=== PATIENT | female | born 1965 | race Two or more races ===

== ENCOUNTER 2024-02-18 11:37 | Inpatient (IN) | payer OTHER ==
[~2024-02-18] VITALS: Ht 152.4 cm; Wt 89.6 kg
[2024-02-18 12:00] VITALS: PULSE 105; RESP 23; O2SAT 93
[2024-02-18] MEDS ORDERED: ASPI-1444 PO (12:25)
[2024-02-18] MEDS ORDERED: NYST15PO4 TP (12:25)
[2024-02-18] MEDS ORDERED: CLOT15CR23 TP (12:25)
[2024-02-18] MEDS ORDERED: LEVE500T20 PO (12:25)
[2024-02-18] MEDS ORDERED: SIMV-46 PO (12:25)
[2024-02-18 12:28] LABS: BASOPHILS % (AUTO) 0.5 % (0.0-2.0); EOSINOPHILS % (AUTO) 0.7 % (1.0-6.0); HEMATOCRIT 46.8 % (36-46); HEMOGLOBIN 15.5 g/dL (12.0-16.0); LYMPHOCYTES % (AUTO) 10.4 % (22.0-44.0); MEAN CORPUSCULAR HEMOGLOBIN 32.4 pg (26.0-34.0); MEAN CORPUSCULAR HGB CONC 33.1 G/dL (31.0-37.0); MEAN CORPUSCULAR VOLUME 98 fL (80-100); MONOCYTES # (AUTO) 0.6 K/uL (0.1-1.0); MONOCYTES % (AUTO) 6.5 % (2.0-9.0); NEUTROPHILS % (AUTO) 81.9 % (40.0-70.0); PLATELET COUNT (AUTO) 208 K/uL (150-450); RED BLOOD CELL COUNT(AUTO) 4.78 MIL/uL (4.00-5.20); RED CELL DISTRIBUTION WIDTH 14.9 % (11.5-14.5); WHITE BLOOD COUNT (AUTO) 9.8 K/uL (4.5-11.0)
[2024-02-18 12:30] VITALS: PULSE 106; RESP 23; O2SAT 93
[2024-02-18 12:36] LABS: ABG BASE EXCESS 1.2 mmol/L (-2.0-3.0); ABG CARBOXYHEMOGLOBIN 0.9 % (0.0-1.5); ABG HCO3 25.4 mmol/L (22.0-26.0); ABG METHEMOGLOBIN 0.6 % (0.0-1.5); ABG OXYGEN CONTENT 21.2 mL/dL (15.0-23.0); ABG OXYGEN SATURATION 99.4 % (95.0-98.0); ABG OXYHEMOGLOBIN 97.9 % (94.0-100.0); ABG PCO2 42 mmHg (35-45); ABG PH 7.411 (7.35-7.450); ABG TOTAL HEMOGLOBIN 15.2 G/dL (12.0-18.0); ALLEN TEST, BLOOD GAS POS; O2 DEVICE,BLOOD GAS NC (ROOM AIR); PO2, ARTERIAL BG 161.2 mmHg (84.0-92.0); SITE, BLOOD GAS RT BRACHIAL; SOURCE, BLOOD GAS ARTERIAL; TEMPERATURE, FAHRENHEIT, BG 98.6 FAHREN (96.0-98.6)
[2024-02-18] MEDS: SODIUM CHLORIDE 0.9% 2,600 ML IV ONE (12:42)
[2024-02-18] MEDS: ALBUTEROL SULFATE 2.5 MG/0.5 ML 5 ML NEB SOLUTION NEB ONE (12:51)
[2024-02-18] MEDS: IPRATROPIUM BROMIDE 0.5 MG/2.5 ML NEB SOLUTION NEB ONE (12:51)
[2024-02-18 13:19] LABS: B-TYPE NATRIURETIC PEPTIDE 14 pg/mL (0-100)
[2024-02-18] MEDS ORDERED: BISACODYL 10 MG RECTAL RECTAL SUPPOSITORY PR PRN (13:30)
[2024-02-18] MEDS ORDERED: ONDANSETRON HCL 4 MG/2 ML VIAL IVP PRN (13:30)
[2024-02-18] MEDS ORDERED: LORazepam 2 MG/ML VIAL IVP PRN (13:30)
[2024-02-18] MEDS ORDERED: ACETAMINOPHEN 325 MG TABLET PO PRN (13:30)
[2024-02-18 13:31] LABS: TROPONIN I-HIGH SENSITIVITY 5 ng/L (<51)
[2024-02-18 13:36] LABS: ANION GAP 8 mmol/L (8-16); CALCIUM, TOTAL 8.3 mg/dL (8.8-10.5); CARBON DIOXIDE 29 mmol/L (22-29); CHLORIDE 101 mmol/L (98-107); GLOMERULAR FILTR. RATE CALC > 60 mL/min (>60); GLUCOSE,RANDOM 114 mg/dL (70-110); POTASSIUM 3.8 mmol/L (3.5-5.1); SODIUM SERUM 138 mmol/L (136-145); UREA NITROGEN, BLOOD 15 mg/dL (7-18)
[2024-02-18 14:01] LABS: ALANINE AMINOTRANSFERASE 20 U/L (12-78); ALBUMIN 2.4 g/dL (3.4-5.0); ALKALINE PHOSPHATASE 93 U/L (46-116); ASPARTATE AMINOTRANSFERASE 18 U/L (15-37); BILIRUBIN,TOTAL 0.7 mg/dL (0.1-1.0); CREATINE KINASE, TOTAL ONLY 98 U/L (26-192); TOTAL PROTEIN, SERUM 8.9 g/dL (6.4-8.2)
[2024-02-18 14:08] LABS: LACTIC ACID 1.2 mmol/L (0.4-2.0)
[2024-02-18] MEDS: AZITHROMYCIN 500 MG/NS 250 ML IV ONE (14:12)
[2024-02-18] MEDS: CefTRIAXone 1 GM/DEXTROSE 50 ML IV ONE (14:12)
[2024-02-18 14:30] VITALS: PULSE 118; RESP 36; O2SAT 96
[2024-02-18] MEDS: SODIUM CHLORIDE 0.9% 1,000 ML IV ONE (15:19)
[2024-02-18] MEDS: HEPARIN SODIUM,PORCINE 5,000 UNITS/ML VIAL SQ SCH (15:27)
[2024-02-18 15:55] LABS: APPEARANCE,URINE CLEAR (CLEAR); BILIRUBIN,URINE NEGATIVE (NEGATIVE); COLOR,URINE LIGHT YELLOW (YELLOW); GLUCOSE, URINE (UA) NEGATIVE (NEGATIVE); KETONES,URINE NEGATIVE (NEGATIVE); LEUKOCYTE ESTERASE ,URINE NEGATIVE (NEGATIVE); NITRATE,URINE NEGATIVE (NEGATIVE); OCCULT BLOOD,URINE NEGATIVE (NEGATIVE); PH,URINE 5.5 (5.0-8.0); PROTEIN,URINE NEGATIVE (NEGATIVE); SPECIFIC GRAVITIY, URINE 1.009 (1.003-1.030); UROBILINOGEN,URINE <=1.0 mg/dL (<=1.0)
[2024-02-18 16:50] VITALS: PULSE 108; RESP 37; O2SAT 94
[2024-02-18 16:53] LABS: INFLUENZA A-RTPCR,COMBO NEGATIVE (NEGATIVE); INFLUENZA B-RTPCR,COMBO NEGATIVE (NEGATIVE); RESPIRATORY SYNCYTIAL VRS-PCR NEGATIVE (NEGATIVE); SARS COVID19 RTPCR, COMBO NEGATIVE (NEGATIVE)
[2024-02-18] MEDS: ACETAMINOPHEN 650 MG RECTAL SUPPOSITORY PR PRN (17:44)
[2024-02-18] MEDS ORDERED: NOREPINEPHRINE 8 MG/0.9 % NACL 250 ML IV ONE (18:43)
[2024-02-18] MEDS: NOREPINEPHRINE 8 MG/0.9 % NACL 250 ML IV PRN (18:48)
[2024-02-18 19:02] VITALS: PULSE 108; RESP 20; O2SAT 96
[2024-02-18] MEDS: CHLORHEXIDINE GLUCONATE 2% TOWELETTE [2'S/6'S] TP SCH (21:59)
[2024-02-18 22:11] VITALS: PULSE 90; RESP 16; O2SAT 100
[2024-02-19] VITALS (12 sets, daily range): BP systolic 113–145; BP diastolic 60–73; PULSE 59–116; RESP 15–26; TEMP 98.6–99.4; O2SAT 91–100
[2024-02-19] MEDS: LevETIRAcetam 500 MG in DEXTROSE 5%-WATER 100 ML IV SCH (06:11)
[2024-02-19] MEDS: PANTOPRAZOLE SODIUM 40 MG/VIAL IVP SCH (09:09)
[2024-02-19 14:50] LABS: ABG CARBOXYHEMOGLOBIN 0.5 % (0.0-1.5); ABG HCO3 23.6 mmol/L (22.0-26.0); ABG METHEMOGLOBIN 0.2 % (0.0-1.5); ABG OXYGEN SATURATION 99.3 % (95.0-98.0); ABG OXYHEMOGLOBIN 98.6 % (94.0-100.0); ABG PCO2 44 mmHg (35-45); ABG PH 7.361 (7.35-7.450); ABG TOTAL HEMOGLOBIN 14.1 G/dL (12.0-18.0); PO2, ARTERIAL BG 218.3 mmHg (84.0-92.0); SOURCE, BLOOD GAS ARTERIAL; TEMPERATURE, FAHRENHEIT, BG 99.1 FAHREN (96.0-98.6)
[2024-02-19 15:03] LABS: ABG A-A DIFF O2 218.3 mmHg (10-20.0); ALLEN TEST, BLOOD GAS Positive; SITE, BLOOD GAS LFT BRACHIAL
[2024-02-19 15:04] LABS: O2 DEVICE,BLOOD GAS CANNULA (ROOM AIR)
[2024-02-19] MEDS ORDERED: SODIUM CHLORIDE 0.9% 250 ML IV ONE (15:09)
[2024-02-19] MEDS: CefTRIAXone 1 GM/DEXTROSE 50 ML IV SCH (15:13)
[2024-02-19] MEDS: AZITHROMYCIN 500 MG/NS 250 ML IV SCH (15:13)
[2024-02-19] MEDS: RINGERS SOLUTION,LACTATED 1,000 ML IV SCH (15:14)
[2024-02-19] MEDS: MethylPREDNISolone SOD SUCC 125 MG/2 ML VIAL IVP SCH (17:07)
[2024-02-19] MEDS: ALBUTEROL SULFATE 2.5 MG/0.5 ML NEB SOLUTION NEB SCH (19:53)
[2024-02-19] MEDS: IPRATROPIUM BROMIDE 0.5 MG/2.5 ML NEB SOLUTION NEB SCH (19:53)
[2024-02-20] VITALS (18 sets, daily range): BP systolic 112–152; BP diastolic 53–87; PULSE 52–109; RESP 14–20; TEMP 97.1–98.9; O2SAT 52–99
[2024-02-20] MEDS ORDERED: SODIUM CHLORIDE 0.9% 250 ML IV ONE (01:08)
[2024-02-20 06:17] LABS: BASOPHILS % (AUTO) 0.1 % (0.0-2.0); EOSINOPHILS % (AUTO) 0 % (1.0-6.0); HEMATOCRIT 37.3 % (36-46); HEMOGLOBIN 12.3 g/dL (12.0-16.0); LYMPHOCYTES # (AUTO) 0.6 K/uL (1.0-4.8); LYMPHOCYTES % (AUTO) 8.6 % (22.0-44.0); MEAN CORPUSCULAR HEMOGLOBIN 32.2 pg (26.0-34.0); MEAN CORPUSCULAR HGB CONC 32.9 G/dL (31.0-37.0); MEAN CORPUSCULAR VOLUME 98 fL (80-100); MONOCYTES % (AUTO) 0.7 % (2.0-9.0); NEUTROPHILS # (AUTO) 6.2 K/uL (1.8-7.7); PLATELET COUNT (AUTO) 167 K/uL (150-450); RED BLOOD CELL COUNT(AUTO) 3.81 MIL/uL (4.00-5.20); RED CELL DISTRIBUTION WIDTH 14.8 % (11.5-14.5); WHITE BLOOD COUNT (AUTO) 6.8 K/uL (4.5-11.0)
[2024-02-20 06:23] LABS: NEUTROPHILS % (AUTO) 90.6 % (40.0-70.0)
[2024-02-20 06:25] LABS: ANION GAP 7 mmol/L (8-16); CALCIUM, TOTAL 8.1 mg/dL (8.8-10.5); CARBON DIOXIDE 26 mmol/L (22-29); CHLORIDE 105 mmol/L (98-107); CREATININE 0.77 mg/dL (0.60-1.30); GLOMERULAR FILTR. RATE CALC > 60 mL/min (>60); GLUCOSE,RANDOM 153 mg/dL (70-110); POTASSIUM 3.9 mmol/L (3.5-5.1); SODIUM SERUM 138 mmol/L (136-145); UREA NITROGEN, BLOOD 9 mg/dL (7-18)
[2024-02-21] VITALS (18 sets, daily range): BP systolic 123–141; BP diastolic 72–98; PULSE 51–99; RESP 11–21; TEMP 97.1–98.3; O2SAT 93–100
[2024-02-21 10:15] LABS: BASOPHILS % (AUTO) 0.1 % (0.0-2.0); EOSINOPHILS % (AUTO) 0 % (1.0-6.0); HEMATOCRIT 38.3 % (36-46); HEMOGLOBIN 12.6 g/dL (12.0-16.0); LYMPHOCYTES # (AUTO) 0.6 K/uL (1.0-4.8); LYMPHOCYTES % (AUTO) 7.8 % (22.0-44.0); MEAN CORPUSCULAR HEMOGLOBIN 32.1 pg (26.0-34.0); MEAN CORPUSCULAR HGB CONC 32.9 G/dL (31.0-37.0); MEAN CORPUSCULAR VOLUME 97 fL (80-100); MONOCYTES # (AUTO) 0.2 K/uL (0.1-1.0); MONOCYTES % (AUTO) 3.3 % (2.0-9.0); NEUTROPHILS # (AUTO) 6.5 K/uL (1.8-7.7); PLATELET COUNT (AUTO) 189 K/uL (150-450); RED BLOOD CELL COUNT(AUTO) 3.94 MIL/uL (4.00-5.20); RED CELL DISTRIBUTION WIDTH 14.4 % (11.5-14.5); WHITE BLOOD COUNT (AUTO) 7.3 K/uL (4.5-11.0)
[2024-02-21 10:16] LABS: NEUTROPHILS % (AUTO) 88.8 % (40.0-70.0)
[2024-02-21 10:24] LABS: ANION GAP 6 mmol/L (8-16); CALCIUM, TOTAL 8.1 mg/dL (8.8-10.5); CARBON DIOXIDE 31 mmol/L (22-29); CHLORIDE 109 mmol/L (98-107); CREATININE 0.84 mg/dL (0.60-1.30); GLOMERULAR FILTR. RATE CALC > 60 mL/min (>60); GLUCOSE,RANDOM 127 mg/dL (70-110); POTASSIUM 3.7 mmol/L (3.5-5.1); SODIUM SERUM 146 mmol/L (136-145); UREA NITROGEN, BLOOD 11 mg/dL (7-18)
[2024-02-22] VITALS (18 sets, daily range): BP systolic 104–160; BP diastolic 61–95; PULSE 52–106; RESP 12–21; TEMP 96.5–98.7; O2SAT 92–100
[2024-02-22] MEDS ORDERED: SODIUM CHLORIDE 0.9% 250 ML IV ONE (17:52)
[2024-02-23] VITALS (19 sets, daily range): BP systolic 111–145; BP diastolic 67–99; PULSE 46–93; RESP 14–20; TEMP 96.6–98.4; O2SAT 92–100
[2024-02-23] MEDS: *CLINICAL-PERIPHERAL PARENTERAL NUTRITION DOSING CLINICAL ONE (08:44)
[2024-02-23 09:52] LABS: ANION GAP 6 mmol/L (8-16); CALCIUM, TOTAL 7.8 mg/dL (8.8-10.5); CARBON DIOXIDE 32 mmol/L (22-29); CHLORIDE 101 mmol/L (98-107); GLOMERULAR FILTR. RATE CALC > 60 mL/min (>60); GLUCOSE,RANDOM 125 mg/dL (70-110); PHOSPHORUS 3.1 mg/dL (2.5-4.9); POTASSIUM 3.4 mmol/L (3.5-5.1); SODIUM SERUM 139 mmol/L (136-145); UREA NITROGEN, BLOOD 13 mg/dL (7-18)
[2024-02-23] MEDS ORDERED: POTASSIUM CHLORIDE 20 MEQ ER TABLET PO PRN (10:45)
[2024-02-23] MEDS: POTASSIUM CHL 10 MEQ/WATER 50 ML IV PRN (11:54)
[2024-02-23] MEDS: MethylPREDNISolone SOD SUCC 40 MG/ML VIAL IVP SCH (15:25)
[2024-02-23] MEDS: SODIUM CHLORIDE IV SCH (22:15)
[2024-02-23] MEDS: PPN IV SCH (22:15)
[2024-02-23] MEDS: [UNRECOGNIZED DRUG - OTHER] IV SCH (22:15)
[2024-02-23] MEDS: POTASSIUM CHLORIDE IV SCH (22:15)
[2024-02-24] VITALS (19 sets, daily range): BP systolic 119–151; BP diastolic 71–89; PULSE 51–88; RESP 14–20; TEMP 97.1–98.1; O2SAT 95–100
[2024-02-24] MEDS ORDERED: 0.9% SODIUM CHLORIDE 5 ML NEB SOLUTION NEB ONE (02:51)
[2024-02-24 07:16] LABS: ANION GAP 5 mmol/L (8-16); CALCIUM, TOTAL 8.1 mg/dL (8.8-10.5); CARBON DIOXIDE 28 mmol/L (22-29); CHLORIDE 102 mmol/L (98-107); CREATININE 0.77 mg/dL (0.60-1.30); GLOMERULAR FILTR. RATE CALC > 60 mL/min (>60); GLUCOSE,RANDOM 133 mg/dL (70-110); PHOSPHORUS 3.6 mg/dL (2.5-4.9); POTASSIUM 4.2 mmol/L (3.5-5.1); SODIUM SERUM 135 mmol/L (136-145); UREA NITROGEN, BLOOD 17 mg/dL (7-18)
[2024-02-24] MEDS: PredniSONE 20 MG TABLET PO SCH (09:00)
[2024-02-25] VITALS (20 sets, daily range): BP systolic 95–164; BP diastolic 56–90; PULSE 60–101; RESP 15–21; TEMP 97.6–98.6; O2SAT 97–100
[2024-02-25 07:41] LABS: ANION GAP 3 mmol/L (8-16); CALCIUM, TOTAL 7.4 mg/dL (8.8-10.5); CARBON DIOXIDE 31 mmol/L (22-29); CHLORIDE 103 mmol/L (98-107); CREATININE 0.77 mg/dL (0.60-1.30); GLOMERULAR FILTR. RATE CALC > 60 mL/min (>60); GLUCOSE,RANDOM 93 mg/dL (70-110); PHOSPHORUS 2.5 mg/dL (2.5-4.9); POTASSIUM 3.3 mmol/L (3.5-5.1); SODIUM SERUM 136 mmol/L (136-145); UREA NITROGEN, BLOOD 24 mg/dL (7-18)
[2024-02-25] MEDS ORDERED: PROPOFOL 1% 20 ML VIAL IVP ONE (10:00)
[2024-02-25] MEDS ORDERED: LIDOCAINE/PF 2% 5 ML VIAL ONE (10:00)
[2024-02-25 12:00] LABS: HEMOGLOBIN 14.3 g/dL (12.0-16.0); MEAN CORPUSCULAR HEMOGLOBIN 32.1 pg (26.0-34.0); MEAN CORPUSCULAR HGB CONC 33.2 G/dL (31.0-37.0); MEAN CORPUSCULAR VOLUME 97 fL (80-100); PLATELET COUNT (AUTO) 183 K/uL (150-450); RED BLOOD CELL COUNT(AUTO) 4.45 MIL/uL (4.00-5.20); RED CELL DISTRIBUTION WIDTH 13.9 % (11.5-14.5); WHITE BLOOD COUNT (AUTO) 7.6 K/uL (4.5-11.0)
[2024-02-25 12:03] LABS: BAND NEUTROPHILS % (MANUAL) 0 % (0-5)
[2024-02-25 12:06] LABS: INR 1.1 (0.9-1.1); PROTHROMBIN TIME 11.4 SEC (9.4-11.6)
[2024-02-25 12:23] LABS: LYMPHOCYTES % (MANUAL) 19 % (22-44); MONOCYTES % (MANUAL) 8 % (2-9); SEGMENTED NEUTROPHILS % 73 % (40-70); TOTAL CELLS COUNTED 100
[2024-02-25] MEDS ORDERED: SODIUM CHLORIDE 0.9% 500 ML IV ONE (12:57)
[2024-02-25] MEDS ORDERED: SODIUM CHLORIDE 0.9% 1,000 ML ONE (14:10)
[2024-02-25] MEDS ORDERED: BUDE0.25 NEB (17:22)
[2024-02-26] VITALS (18 sets, daily range): BP systolic 97–152; BP diastolic 44–98; PULSE 62–111; RESP 14–19; TEMP 97.5–98.9; O2SAT 94–99
[2024-02-26 05:21] LABS: GLUCOMETER DEV NAME(LOC) 5S.1B; GLUCOSE,POINT OF CARE 93 MG/DL (70-110)
[2024-02-26 06:39] LABS: ANION GAP 4 mmol/L (8-16); CALCIUM, TOTAL 7.5 mg/dL (8.8-10.5); CARBON DIOXIDE 28 mmol/L (22-29); CHLORIDE 104 mmol/L (98-107); CREATININE 0.79 mg/dL (0.60-1.30); GLOMERULAR FILTR. RATE CALC > 60 mL/min (>60); GLUCOSE,RANDOM 99 mg/dL (70-110); PHOSPHORUS 2.9 mg/dL (2.5-4.9); POTASSIUM 3.9 mmol/L (3.5-5.1); SODIUM SERUM 136 mmol/L (136-145); UREA NITROGEN, BLOOD 20 mg/dL (7-18)
[2024-02-26] MEDS: PredniSONE 20 MG TABLET PO SCH (08:58)
[2024-02-26] MEDS: DEXTROSE 5%-0.45% SODIUM CHL 1,000 ML IV ONE (10:13)
[2024-02-26] MEDS: CLOTRIMAZOLE 1%/BETAMETH DIP 0.05% 15 GM CREAM TP SCH (10:37)
[2024-02-27] VITALS (16 sets, daily range): BP systolic 94–132; BP diastolic 48–66; PULSE 83–111; RESP 14–19; TEMP 98–99.7; O2SAT 95–98
[2024-02-27 07:05] LABS: BASOPHILS % (AUTO) 0.3 % (0.0-2.0); EOSINOPHILS % (AUTO) 1.6 % (1.0-6.0); HEMATOCRIT 39.6 % (36-46); HEMOGLOBIN 13.2 g/dL (12.0-16.0); LYMPHOCYTES # (AUTO) 0.6 K/uL (1.0-4.8); LYMPHOCYTES % (AUTO) 6.4 % (22.0-44.0); MEAN CORPUSCULAR HEMOGLOBIN 32.3 pg (26.0-34.0); MEAN CORPUSCULAR HGB CONC 33.3 G/dL (31.0-37.0); MEAN CORPUSCULAR VOLUME 97 fL (80-100); MONOCYTES # (AUTO) 0.8 K/uL (0.1-1.0); NEUTROPHILS # (AUTO) 8.4 K/uL (1.8-7.7); NEUTROPHILS % (AUTO) 83.7 % (40.0-70.0); PLATELET COUNT (AUTO) 141 K/uL (150-450); RED BLOOD CELL COUNT(AUTO) 4.08 MIL/uL (4.00-5.20); RED CELL DISTRIBUTION WIDTH 14.6 % (11.5-14.5)
[2024-02-27 07:46] LABS: CALCIUM, TOTAL 7.4 mg/dL (8.8-10.5); CARBON DIOXIDE 28 mmol/L (22-29); CREATININE 0.75 mg/dL (0.60-1.30); GLOMERULAR FILTR. RATE CALC > 60 mL/min (>60); GLUCOSE,RANDOM 124 mg/dL (70-110); PHOSPHORUS 3.4 mg/dL (2.5-4.9); UREA NITROGEN, BLOOD 12 mg/dL (7-18)
[2024-02-27 07:56] LABS: ANION GAP 6 mmol/L (8-16); CHLORIDE 104 mmol/L (98-107); POTASSIUM 3.4 mmol/L (3.5-5.1); SODIUM SERUM 138 mmol/L (136-145)
[2024-02-27] MEDS ORDERED: SODIUM CHLORIDE 0.9% 500 ML IV ONE (22:11)
[2024-02-28] VITALS (29 sets, daily range): BP systolic 80–116; BP diastolic 42–72; PULSE 83–115; RESP 14–22; TEMP 97.9–99.3; O2SAT 94–100
[2024-02-28 09:45] LABS: CALCIUM, TOTAL 7.8 mg/dL (8.8-10.5); CREATININE 0.99 mg/dL (0.60-1.30); POTASSIUM 3.9 mmol/L (3.5-5.1)
[2024-02-28] MEDS: SODIUM CHLORIDE 0.9% 500 ML IV ONE (16:40)
[2024-02-29] VITALS (20 sets, daily range): BP systolic 96–118; BP diastolic 47–85; PULSE 59–117; RESP 14–22; TEMP 97.9–99.3; O2SAT 10–100
[2024-03-01] VITALS (14 sets, daily range): BP systolic 94–118; BP diastolic 48–73; PULSE 70–111; RESP 14–20; TEMP 98.1–99.1; O2SAT 95–100
[2024-03-01 06:58] LABS: BASOPHILS % (AUTO) 0.2 % (0.0-2.0); EOSINOPHILS % (AUTO) 0.7 % (1.0-6.0); HEMATOCRIT 41.3 % (36-46); HEMOGLOBIN 13.3 g/dL (12.0-16.0); LYMPHOCYTES # (AUTO) 1.4 K/uL (1.0-4.8); LYMPHOCYTES % (AUTO) 8.6 % (22.0-44.0); MEAN CORPUSCULAR HEMOGLOBIN 31.7 pg (26.0-34.0); MEAN CORPUSCULAR HGB CONC 32.3 G/dL (31.0-37.0); MEAN CORPUSCULAR VOLUME 98 fL (80-100); MONOCYTES # (AUTO) 1.3 K/uL (0.1-1.0); MONOCYTES % (AUTO) 8.2 % (2.0-9.0); NEUTROPHILS # (AUTO) 13.5 K/uL (1.8-7.7); NEUTROPHILS % (AUTO) 82.3 % (40.0-70.0); PLATELET COUNT (AUTO) 158 K/uL (150-450); RED BLOOD CELL COUNT(AUTO) 4.21 MIL/uL (4.00-5.20); RED CELL DISTRIBUTION WIDTH 15.5 % (11.5-14.5); WHITE BLOOD COUNT (AUTO) 16.3 K/uL (4.5-11.0)
[2024-03-01 07:27] LABS: ALANINE AMINOTRANSFERASE 28 U/L (12-78); ALBUMIN 1.6 g/dL (3.4-5.0); ALKALINE PHOSPHATASE 87 U/L (46-116); ANION GAP 6 mmol/L (8-16); ASPARTATE AMINOTRANSFERASE 18 U/L (15-37); BILIRUBIN,TOTAL 0.4 mg/dL (0.1-1.0); CALCIUM, TOTAL 7.9 mg/dL (8.8-10.5); CARBON DIOXIDE 28 mmol/L (22-29); CHLORIDE 105 mmol/L (98-107); CREATININE 0.83 mg/dL (0.60-1.30); GLOMERULAR FILTR. RATE CALC > 60 mL/min (>60); GLUCOSE,RANDOM 122 mg/dL (70-110); SODIUM SERUM 139 mmol/L (136-145); TOTAL PROTEIN, SERUM 6.4 g/dL (6.4-8.2); UREA NITROGEN, BLOOD 11 mg/dL (7-18)
== END 2024-03-01 16:45 | disposition home health service (06) | DRG 871 ==
LOC: EMS 11:38 → EDBD 11:38 → ICUN 16:33 → ICU 02-19 07:10 → UNDODISIN 02-19 14:50 → 5S 02-21 23:15
PROVIDERS: ADMIT Internal Medicine; ATTEND Internal Medicine
PROC: 5A09357 Assistance with Respiratory Ventilation, Less than 24 Consecutive Hours, Continuous Positive Airway Pressure (ICD-10-PCS; 2024-02-18)
PROC: 5A09357 Assistance with Respiratory Ventilation, Less than 24 Consecutive Hours, Continuous Positive Airway Pressure (ICD-10-PCS; 2024-02-19)
PROC: 05HF33Z Insertion of Infusion Device into Left Cephalic Vein, Percutaneous Approach (ICD-10-PCS; 2024-02-19)
PROC: 05HD33Z Insertion of Infusion Device into Right Cephalic Vein, Percutaneous Approach (ICD-10-PCS; 2024-02-19)
PROC: 5A09357 Assistance with Respiratory Ventilation, Less than 24 Consecutive Hours, Continuous Positive Airway Pressure (ICD-10-PCS; 2024-02-20)
PROC: 5A09357 Assistance with Respiratory Ventilation, Less than 24 Consecutive Hours, Continuous Positive Airway Pressure (ICD-10-PCS; 2024-02-21)
PROC: 5A09357 Assistance with Respiratory Ventilation, Less than 24 Consecutive Hours, Continuous Positive Airway Pressure (ICD-10-PCS; 2024-02-22)
PROC: 5A09357 Assistance with Respiratory Ventilation, Less than 24 Consecutive Hours, Continuous Positive Airway Pressure (ICD-10-PCS; 2024-02-23)
PROC: 5A09357 Assistance with Respiratory Ventilation, Less than 24 Consecutive Hours, Continuous Positive Airway Pressure (ICD-10-PCS; 2024-02-24)
PROC: 0DB68ZX Excision of Stomach, Via Natural or Artificial Opening Endoscopic, Diagnostic (ICD-10-PCS; 2024-02-25)
PROC: 5A09357 Assistance with Respiratory Ventilation, Less than 24 Consecutive Hours, Continuous Positive Airway Pressure (ICD-10-PCS; 2024-02-25)
PROC: 0DH63UZ Insertion of Feeding Device into Stomach, Percutaneous Approach (ICD-10-PCS; principal; 2024-02-25 15:00)
PROC: 5A09357 Assistance with Respiratory Ventilation, Less than 24 Consecutive Hours, Continuous Positive Airway Pressure (ICD-10-PCS; 2024-02-26)
PROC: 5A09357 Assistance with Respiratory Ventilation, Less than 24 Consecutive Hours, Continuous Positive Airway Pressure (ICD-10-PCS; 2024-02-27)
PROC: 5A09357 Assistance with Respiratory Ventilation, Less than 24 Consecutive Hours, Continuous Positive Airway Pressure (ICD-10-PCS; 2024-02-28)
DX: A41.9 Sepsis, unspecified organism (principal); G93.41 Metabolic encephalopathy; J96.01 Acute respiratory failure with hypoxia; J69.0 Pneumonitis due to inhalation of food and vomit; Z20.822 Contact with and (suspected) exposure to COVID-19; G40.909 Epilepsy, unspecified, not intractable, without status epilepticus; E66.9 Obesity, unspecified; G47.33 Obstructive sleep apnea (adult) (pediatric); R13.10 Dysphagia, unspecified; K29.70 Gastritis, unspecified, without bleeding; Q90.9 Down syndrome, unspecified; Z68.38 Body mass index [BMI] 38.0-38.9, adult
CPT/HCPCS: 0241U; 36245; 36569; 36600; 51702; 70450; 71045; 71250; 76937; 80048; 80053; 81003; 82550; 82805; 82962; 83605; 83735; 83880; 84100; 84132; 84145; 84484; 85025; 85379; 85610; 87040; 87077; 87205; 88305; 88312; 88313; 92526; 92610; 93005; 93306; 94640; 94644; 94660; 94799; 99291; C9113; G0482; J0456; J0610; J0696; J0712; J1644; J2060; J2704; J2919; J2920; J3475; J3480; J3490; J7030; J7040; J7050; J7060; J7070; J7120; J7131; Q9967; 36415-L1; 36415-TC; J7613; Z7610

== ENCOUNTER 2025-03-20 05:41 | Day surgery (SDC) | payer OTHER ==
[~2025-03-20] VITALS: Ht 160 cm; Wt 75.0 kg
[~2025-03-20 05:41] MED LIST: ASPI-1444 PO; LEVE-71 PO; SIMV-46 PO
[2025-03-20] MEDS ORDERED: SODIUM CHLORIDE 0.9% 1,000 ML ONE (06:05)
[2025-03-20] MEDS ORDERED: NALOXONE HCL 0.4 MG/ML VIAL ONE (06:53)
[2025-03-20] MEDS ORDERED: FLUMAZENIL 0.1 MG/ML 5 ML VIAL IVP ONE (06:53)
[2025-03-20] MEDS ORDERED: SODIUM TETRADECYL SULFATE 3% 60 MG/2 ML VIAL IVP ONE (06:53)
[2025-03-20] MEDS ORDERED: DiphenhydrAMINE HCL 50 MG/ML VIAL ONE (06:53)
[2025-03-20] MEDS ORDERED: EPINEPHrine 1:10,000 [1 MG/10 ML] SYRINGE ONE (06:54)
[2025-03-20] MEDS ORDERED: ATROPINE SULFATE 0.1 MG/ML 10 ML SYRINGE IVP ONE (06:54)
[2025-03-20] MEDS: SODIUM CHLORIDE 0.9% 1,000 ML IV ONE (06:57)
[2025-03-20] MEDS ORDERED: LIDOCAINE/PF 2% 5 ML VIAL ONE (12:00)
[2025-03-20] MEDS ORDERED: PROPOFOL 1% 20 ML VIAL IVP ONE (12:00)
== END 2025-03-20 11:45 | disposition home or self-care (01) ==
LOC: SURGERY 05:41
PROVIDERS: ATTEND Internal Medicine
DX: Z43.1 Encounter for attention to gastrostomy (principal); Q90.9 Down syndrome, unspecified; I10 Essential (primary) hypertension; E78.00 Pure hypercholesterolemia, unspecified; F03.90 Unspecified dementia, unspecified severity, without behavioral disturbance, psychotic disturbance, mood disturbance, and anxiety; Z98.890 Other specified postprocedural states; Z79.82 Long term (current) use of aspirin; Z79.899 Other long term (current) drug therapy
CPT/HCPCS: 43246; J2704; J3490; J7030; J0171; J0461; J1200; J2310; Z7610